=== PATIENT | male | born 1960 | race Caucasian/White ===

== ENCOUNTER → 2017-07-11 | Outpatient (CLI) | payer OTHER ==
--- NOTE | 2017-07-14 19:26 | SLEEPCENT ---
DATE OF PROCEDURE: 07/11/2017 REFERRING PHYSICIAN: Vashti Mcnamara Nocturnal polysomnography was performed for evaluation of sleep physiology in this patient with a history of excessive somnolence, nonrestorative sleep and comorbidities of anxiety and depression. 8 hours and 57 minutes of data were reviewed. There were 397 minutes of sleep identified. Sleep latency was prolonged at 71.5 minutes. Rapid eye movement (REM) latency was prolonged at 328 minutes. Sleep architecture showed fragmentation and poor progression. Overall sleep efficiency was 74.8%. EKG showed a sinus rhythm with an average heart rate of 65 beats per minute. Rate variability was seen surrounding respiratory events. Rate ranged 55 to 85 beats per minute. EEG showed coarsening in background, some sweat artifact, otherwise normal waveforms for awake and sleep. There were 246 respiratory events identified of 10 seconds in duration or greater for an apnea hypopnea index of 37.1. The events were primarily obstructive, not exclusive to sleep stages, more frequent but not exclusive to the supine posture. Arousals from respiratory events occurred 18.4 times per hour and oxygen desaturations with respiratory events were seen into the 70s. The remaining measures of sleep physiology were reasonably normal. IMPRESSION: Severe obstructive sleep apnea syndrome (G47.33). Apnea/hypopnea index 37.1. RECOMMENDATION: The patient should be encouraged to return to the sleep disorder center for pressure therapy at his earliest convenience. In the interim, alcohol and sedative avoidance should be practiced and caution exercised during the operation of motor vehicles.
== END ==
LOC: M SLEEP 19:42
PROVIDERS: ATTEND Nurse Practitioner Adult Health
DX: G47.30 Sleep apnea, unspecified (principal)

== ENCOUNTER → 2017-08-24 | Outpatient (CLI) | payer OTHER ==
--- NOTE | 2017-08-26 12:43 | SLEEPCENT ---
DATE OF PROCEDURE: 08/24/2017 REQUESTING PROVIDER: Vashti Mcnamara NP INTERPRETATION: Nocturnal polysomnography was performed for the titration of pressure therapy in this patient with obstructive sleep apnea syndrome, apnea-hypopnea index of 37. For testing, the patient was fit with a [employer] Nano View full face mask of medium size, 4 cm of water pressure were applied to the circuit and the lights were extinguished. 7 hours and 26 minutes of data were reviewed. There were 377 minutes of sleep identified. Sleep latency was mildly prolonged at 31 minutes. Rapid eye movement (REM) latency was prolonged at 366 minutes. There was evidence of REM late in the study. Overall sleep efficiency 85.5%. Electrocardiogram (EKG) showed a sinus rhythm with an average heart rate of 64 beats per minute. Electroencephalogram (EEG) showed reasonably normal waveforms for awake and sleep. Persistence of respiratory events prompted an increase in continuous positive airway pressure (CPAP) pressure. Best sleep was seen on a CPAP pressure of 16, with which snoring was ameliorated and there were no respiratory events or oxygen desaturations. There was some limb activity scattered over the course of the study, but arousals from limb events were only 3.5 per hour. IMPRESSION: 1. Obstructive sleep apnea syndrome (G47.33). RECOMMENDATIONS: Nightly use of pressure therapy at 16 cm of water.
== END ==
LOC: M SLEEP 20:00
PROVIDERS: ATTEND Nurse Practitioner Adult Health
DX: G47.33 Obstructive sleep apnea (adult) (pediatric) (principal)

== ENCOUNTER → 2021-11-01 | Outpatient (REF) | payer OTHER ==
[2021-11-01 13:54] LABS: APPEARANCE, URINE CLEAR (CLEAR); BACTERIA, URINE AUTO NEGATIVE (NEGATIVE); BILIRUBIN, URINE AUTO NEGATIVE (NEGATIVE); BLOOD, URINE BLOOD NEGATIVE (NEGATIVE); COLOR, URINE STRAW (YELLOW); GLUCOSE, URINE (UA) AUTO NEGATIVE (NEGATIVE); KETONE, URINE AUTO NEGATIVE (NEGATIVE); LEUKOCYTE ESTERASE, URINE AUTO NEGATIVE (NEGATIVE); MUCUS, URINE SMALL (NEGATIVE); NITRITE, URINE AUTO NEGATIVE (NEGATIVE); PROTEIN, URINE AUTO NEGATIVE (NEGATIVE); RBC, URINE AUTO 0 /HPF (0-3); SPECIFIC GRAVITY URINE AUTO 1.004 (1.002-1.035); SQUAMOUS EPITHELIAL CELL UR AU 0 /HPF (0-6); UROBILINOGEN, URINE AUTO 0.2 mg/dL (0.0-2.0); WBC, URINE AUTO 0 /HPF (0-3)
== END ==
LOC: M SMT 12:55
PROVIDERS: ATTEND Nurse Practitioner Women's Health
DX: N40.0 Benign prostatic hyperplasia without lower urinary tract symptoms (principal)

== ENCOUNTER → 2021-12-01 | Outpatient (CLI) | payer OTHER ==
[~2021-12-01] MED LIST: AMLO1TAB24 PO; FINA5TAB2 PO; SERT50TA29 PO
== END ==
LOC: M LABSMTC 10:36
PROVIDERS: ATTEND Anesthesiology
DX: Z01.812 Encounter for preprocedural laboratory examination (principal); Z20.822 Contact with and (suspected) exposure to COVID-19

== ENCOUNTER 2021-12-06 09:10 | Day surgery (SDC) | payer OTHER ==
[~2021-12-06] VITALS: Ht 167.6 cm; Wt 88.2 kg
[~2021-12-06 09:10] MED LIST changes: +LIDOCAINE 2% 100MG/5ML SDV (FOR ANES.) As Ordered ONE; +NS 1,000 ML IV ONE; +fentaNYL 100 MCG/2 ML INJECTION As Ordered ONE; +propofoL 500 MG/50 ML VIAL As Ordered ONE
[2021-12-06 12:05] VITALS: BP 120/61
== END 2021-12-06 12:15 | disposition home or self-care (01) ==
LOC: M OPP 09:10
PROVIDERS: ATTEND Surgery
DX: R10.84 Generalized abdominal pain (principal); R14.0 Abdominal distension (gaseous); D12.6 Benign neoplasm of colon, unspecified; D13.2 Benign neoplasm of duodenum; K44.9 Diaphragmatic hernia without obstruction or gangrene; I10 Essential (primary) hypertension; F41.9 Anxiety disorder, unspecified; F32.A Depression, unspecified; G47.33 Obstructive sleep apnea (adult) (pediatric); Z87.891 Personal history of nicotine dependence; Z79.899 Other long term (current) drug therapy; Z82.49 Family history of ischemic heart disease and other diseases of the circulatory system; Z80.3 Family history of malignant neoplasm of breast; Z80.8 Family history of malignant neoplasm of other organs or systems
CPT/HCPCS: 43239; 45380; 88305; J3010

== ENCOUNTER → 2023-09-01 | Outpatient (CLI) | payer OTHER ==
[~2023-09-01] MED LIST changes: -LIDOCAINE 2% 100MG/5ML SDV (FOR ANES.) As Ordered ONE; -NS 1,000 ML IV ONE; +PROHANCE 279.3MG/ML 15ML VIAL ONE; +PROHANCE 279.3MG/ML 5ML VIAL ONE; -fentaNYL 100 MCG/2 ML INJECTION As Ordered ONE; -propofoL 500 MG/50 ML VIAL As Ordered ONE
== END ==
LOC: M PLAIMG 13:30
PROVIDERS: ATTEND Otolaryngology
DX: H93.12 Tinnitus, left ear (principal); J32.0 Chronic maxillary sinusitis; J33.0 Polyp of nasal cavity